=== PATIENT | female | born 1995 | race American Indian/Alaskan Native ===

== ENCOUNTER 2017-01-23 15:39 | Emergency (ER) | payer SELFPAY ==
[2017-01-23 16:23] VITALS: BP 103/70
[2017-01-23] MEDS ORDERED: ATROVENT IH ONE (19:39)
[2017-01-23] MEDS ORDERED: PROVENTIL IH ONE (19:39)
--- NOTE | 2017-01-23 19:39 | Emergency Department Report ---
ED Asthma HPI - General Chief Complaint: Adult Asthma Stated Complaint: ASTHMA/RACHEL Time Seen by Provider: 01/23/17 19:09 Source: patient, family Mode of arrival: Ambulatory Limitations: No Limitations - History of Present Illness Initial Comments: Patient here reports she has a history of adult asthma and she ran out of her albuterol medication she complained of chest tightness and difficulty in breathing. She is complaining the wheezing. Complaining of nasal congestion. She said she had upper respiratory tract infection about a week ago. Denies any fever or chills. Symptoms similar to her asthma attacks. Denies is a history of acid reflux asthma and back spasms. He reports dry cough. MD Complaint: "asthma attack", shortness of breath, wheezing Onset/Timin -: days(s) Asthma History: adult onset, history of prior ED visit Severity: similar to prior Context: recent URI, ran out of meds Associated Symptoms: dry cough - Related Data Current Asthma Therapy: inhaled bronchodilator Previous Rx's Medication Instructions Recorded Last Taken Type Ibuprofen [Motrin 600 MG tab] 600 mg PO Q8H PRN #40 tablet 10/01/14 04/05/15 10: 00 Rx predniSONE [Deltasone] 20 mg PO BID #6 tab 04/07/15 Unknown Rx ALBUTEROL Inhaler [ProAir HFA 2 puff IH QID PRN #1 inhalation 01/23/17 Unknown Rx Inhaler] predniSONE [Deltasone] 50 mg PO QAM #5 tablet 01/23/17 Unknown Rx Allergies Allergy/AdvReac Type Severity Reaction Status Date / Time No Known Allergies Allergy Verified 04/07/15 10:42 ED Review of Systems ROS: Stated complaint: ASTHMA/RACHEL Other details as noted in HPI Comment: All other systems reviewed and negative Constitutional: denies: chills, fever Eyes: denies: eye discharge ENT: congestion. denies: ear pain, throat pain Respiratory: cough, shortness of breath, SOB with exertion, wheezing. denies: SOB at rest, stridor Cardiovascular: other (chest tightness from asthma attack). denies: chest pain , palpitations, edema, syncope Gastrointestinal: denies: abdominal pain, nausea, vomiting Skin: denies: rash Neurological: denies: headache, weakness, numbness, paresthesias, abnormal gait , vertigo ED Past Medical Hx - Past Medical History Previous Medical History?: Yes Hx GERD: Yes Hx Asthma: Yes Additional medical history: back SPASMS. TORN LIGAMENT LEFT KNEE. - Surgical History Past Surgical History?: No - Family History Family history: hypertension - Social History Smoking Status: Never Smoker Substance Use Type: Alcohol, Non Opiate Pain - Medications Home Medications: Home Medications Medication Instructions Recorded Confirmed Last Taken Type Ibuprofen [Motrin 600 MG tab] 600 mg PO Q8H PRN #40 tablet 10/01/14 04/07/15 10:00 Rx predniSONE [Deltasone] 20 mg PO BID #6 tab 04/07/15 Unknown Rx ALBUTEROL Inhaler [ProAir HFA 2 puff IH QID PRN #1 inhalation 01/23/17 Unknown Rx Inhaler] predniSONE [Deltasone] 50 mg PO QAM #5 tablet 01/23/17 Unknown Rx ED Physical Exam - General Limitations: No Limitations General appearance: alert, in no apparent distress - Head Head exam: Present: atraumatic, normocephalic, normal inspection - Eye Eye exam: Present: normal appearance, PERRL, EOMI Pupils: Present: normal accommodation - ENT ENT exam: Present: normal exam, normal orophraynx, mucous membranes moist, TM's normal bilaterally, normal external ear exam, other (nasal mucosa congested without erythema. Clear drainage) - Neck Neck exam: Present: normal inspection, tenderness, full ROM. Absent: lymphadenopathy - Expanded Neck Exam Expanded Neck exam: Absent: tenderness, midline deformity, anterior neck swelling, tracheal deviation - Respiratory Respiratory exam: Present: normal lung sounds bilaterally, wheezes ED Course Vital Signs 01/23/17 01/23/17 01/23/17 16:19 20:01 20:02 Temperature 98.3 F Pulse Rate 56 L 57 L Pulse Rate [ 57 L Anterior Bilateral Throughout] Respiratory 18 18 Rate Respiratory 18 Rate [Anterior Bilateral Throughout] Blood Pressure 103/70 O2 Sat by Pulse 100 100 Oximetry 01/23/17 20:15 Temperature Pulse Rate Pulse Rate [ 69 Anterior Bilateral Throughout] Respiratory Rate Respiratory 18 Rate [Anterior Bilateral Throughout] Blood Pressure O2 Sat by Pulse Oximetry - Reevaluation(s) Reevaluation #1: 01/23/17 20:36 Patient received albuterol 5 mg and Atrovent 0.5 mg nebulizer in emergency room. She received Deltasone 60 mg by mouth.. Reevaluation patient says she feels better and her lungs were clear. ED Medical Decision Making - Medical Decision Making ED course: Patient with mild asthma attack. She was given Deltasone 60 mg by mouth and albuterol 5 mg along with Atrovent 0.5 mg inhaler in emergency room. This relieved her chest tightness and wheezing and patient reports she was feeling better . She is also here for refills on her albuterol. Patient discharged home with prescription for albuterol and Deltasone.. This with her that she will need to follow-up with her primary care physician which she does have one in 2 days. Patient discharged home without any chest pain or difficulty breathing. Critical care attestation.: If time is entered above; I have spent that time in minutes in the direct care of this critically ill patient, excluding procedure time. ED Disposition Clinical Impression: Acute asthma exacerbation Qualifiers: Asthma severity: mild intermittent Qualified Code(s): J45.21 - Mild intermittent asthma with (acute) exacerbation Disposition: DISCHARGED TO HOME OR SELFCARE Is pt being admited?: No Does the pt Need Aspirin: No Condition: Stable Instructions: Asthma (ED) Additional Instructions: use your albuterol as instructed Please take steroids as instructed Prescriptions: ALBUTEROL Inhaler [ProAir HFA Inhaler] 2 puff IH QID PRN #1 inhalation PRN Reason: Wheezing predniSONE [Deltasone] 50 mg PO QAM #5 tablet Referrals: PRIMARY CAREMD [Primary Care Provider] - 01/25/17 [facility] [Outside] - 01/25/17 Forms: Accompanied Note, Work/School Release Form(ED)
[2017-01-23] MEDS ORDERED: DELTASONE PO ONE (19:40)
== END 2017-01-23 20:49 | disposition home or self-care (01) ==
LOC: ED 15:39
DX: J45.21 Mild intermittent asthma with (acute) exacerbation (principal); K21.9 Gastro-esophageal reflux disease without esophagitis
CPT/HCPCS: 94640; 99283; J7512

== ENCOUNTER 2017-02-20 13:45 | Emergency (ER) | payer SELFPAY ==
[2017-02-20 14:10] VITALS: BP 110/80
[2017-02-20 15:04] LABS: Basophils % (Auto) 0.2 % (0.0-1.8); Eosinophils % (Auto) 0.8 % (0.0-4.3); Hematocrit 36.1 % (30.3-42.9); Hemoglobin 11.4 gm/dl (10.1-14.3); Mean Corpuscular HGB Conc 32 % (30-34); Mean Corpuscular Volume 73 fl (79-97); Platelet Count 239 K/mm3 (140-440); Red Blood Count 4.94 M/mm3 (3.65-5.03); Red Cell Distribution Width 14.9 % (13.2-15.2); White Blood Count 5.9 K/mm3 (4.5-11.0)
[2017-02-20 15:07] LABS: Mean Corpuscular Hemoglobin 23 pg (28-32)
[2017-02-20 15:12] LABS: Bilirubin,Urine NEG (Negative); Blood,Urine NEG (Negative); Ketones,Urine NEG (Negative); Leukocyte Esterase,Urine NEG (Negative); Mucus,Urine FEW /HPF; Nitrite,Urine NEG (Negative); Protein,Urine <15 mg/dL mg/dL (Negative); Urobilinogen,Urine < 2.0 mg/dL (<2.0)
[2017-02-20 15:16] LABS: Alanine Aminotransferase 9 units/L (7-56); Albumin 4.1 g/dL (3.9-5); Albumin/Globulin Ratio 1.5 %; Alkaline Phosphatase 45 units/L (35-129); Anion Gap 15 mmol/L; Bilirubin,Total 0.3 mg/dL (0.1-1.2); Blood Urea Nitrogen 10 mg/dL (7-17); Carbon Dioxide 26 mmol/L (22-30); Chloride 102.3 mmol/L (98-107); Glucose 98 mg/dL (65-100); Lipase 17 units/L (13-60); Sodium 139 mmol/L (137-145); Total Protein 6.9 g/dL (6.3-8.2)
--- NOTE | 2017-02-21 14:55 | ED Elopement Review ---
ED Pt Elopement review - Results review Lab results: Laboratory Tests 02/20/17 02/20/17 02/20/17 14:27 14:38 14:38 WBC 5.9 RBC 4.94 Hgb 11.4 Hct 36.1 MCV 73 L MCH 23 L MCHC 32 RDW 14.9 Plt Count 239 Lymph % (Auto) 25.2 [place] % (Auto) 8.3 H Eos % (Auto) 0.8 Baso % (Auto) 0.2 Lymph # 1.5 [place] # 0.5 Eos # 0.0 Baso # 0.0 Seg Neutrophils % 65.5 Seg Neutrophils # 3.9 Sodium 139 Potassium 4.0 Chloride 102.3 Carbon Dioxide 26 Anion Gap 15 BUN 10 Creatinine 0.8 Estimated GFR > 60 BUN/Creatinine Ratio 12.50 Glucose 98 Calcium 9.0 Total Bilirubin 0.3 AST 13 ALT 9 Alkaline Phosphatase 45 Total Protein 6.9 Albumin 4.1 Albumin/Globulin Ratio 1.5 Lipase 17 HCG, Qual Urine Color Yellow Urine Turbidity Clear Urine pH 6.0 Ur Specific [place] 1.023 Urine Protein <15 mg/dl Urine Glucose (UA) Neg Urine Ketones Neg Urine Blood Neg Urine Nitrite Neg Urine Bilirubin Neg Urine Urobilinogen < 2.0 Ur Leukocyte Esterase Neg Urine WBC (Auto) 5.0 Urine RBC (Auto) 1.0 U Epithel Cells (Auto) 1.0 Urine Mucus Few 02/20/17 14:38 WBC RBC Hgb Hct MCV MCH MCHC RDW Plt Count Lymph % (Auto) [place] % (Auto) Eos % (Auto) Baso % (Auto) Lymph # [place] # Eos # Baso # Seg Neutrophils % Seg Neutrophils # Sodium Potassium Chloride Carbon Dioxide Anion Gap BUN Creatinine Estimated GFR BUN/Creatinine Ratio Glucose Calcium Total Bilirubin AST ALT Alkaline Phosphatase Total Protein Albumin Albumin/Globulin Ratio Lipase HCG, Qual Negative Urine Color Urine Turbidity Urine pH Ur Specific [place] Urine Protein Urine Glucose (UA) Urine Ketones Urine Blood Urine Nitrite Urine Bilirubin Urine Urobilinogen Ur Leukocyte Esterase Urine WBC (Auto) Urine RBC (Auto) U Epithel Cells (Auto) Urine Mucus - Call Back decision Pt Call Back Decision: Pt to F/U with PMD
== END 2017-02-21 01:03 | disposition left against medical advice (07) ==
LOC: ED 13:45
DX: R10.9 Unspecified abdominal pain (principal); R11.2 Nausea with vomiting, unspecified; Z53.21 Procedure and treatment not carried out due to patient leaving prior to being seen by health care provider
CPT/HCPCS: 36415; 80053; 81001; 83690; 84703; 85025